=== PATIENT | male | born 1990 | race Caucasian/White ===

== ENCOUNTER 2016-10-29 17:05 | Emergency (ER) | payer MEDICAID ==
[~2016-10-29] VITALS: Ht 185.4 cm; Wt 70.3 kg
[~2016-10-29 17:05] MED LIST: AMOXIL500 M1 PO; BACTRIM DS 8001 TAB PO; FLONASE 50 MCG16 GM; KEFLEX 500MG.500 MG PO; NIX CREAM R60 ML/BOT EX; NOMEDS XX; PREDNISONE 20MG20 MG PO
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
--- OUTSIDE RECORDS SUMMARY | 2016-10-29 17:20 | External Medical Summary Rpt ---
Demographics Preferred Language Upper Sor[place] Marital Status Unknown Hindu Affiliation Unknown Race Unknown Ethnic Group Unknown Author Author , Organization [employer] Address Unknown Phone Unavailable Purpose Continuity of Care Document - through 2016 Immunization No patient found.
--- OUTSIDE RECORDS SUMMARY | 2016-10-29 17:20 | External Medical Summary Rpt ---
Demographics Preferred Language Upper Sor[place] Marital Status Unknown Buddhism Affiliation Unknown Race Unknown Ethnic Group Unknown Author Author , Organization [employer] Address Unknown Phone Unavailable Purpose Continuity of Care Document - through 2016 Immunization No patient found.
--- OUTSIDE RECORDS SUMMARY | 2016-10-29 17:20 | External Medical Summary Rpt ---
[...] in 11:16 source source PM data data [place]# 0.5 0.0 - x10(3)/ No No Mar [...] data data data BACK PAIN.\. br\\.br \COMPAR AIR: None.\. br\\.br \TECHNI QUE: XR LUMBAR SPINE [...]
--- OUTSIDE RECORDS SUMMARY | 2016-10-29 17:20 | External Medical Summary Rpt ---
Author Author , Organization [employer] Address Unknown Phone Unavailable Care Team Providers Care Tank Worker Name Role Phone [facility] # [id number], Unavailable Unavailable [facility] # [id number] Purpose Continuity of Care Document - 10-03-2010 through 2016 Medications Na ND Rx Da Fi Fi [...]
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
--- OUTSIDE RECORDS SUMMARY | 2016-10-29 17:20 | External Medical Summary Rpt ---
Author Author , Organization [employer] Address Unknown Phone Unavailable Care Team Providers Care Welder Assistant Name Role Phone [facility] # [id number], Unavailable Unavailable [facility] # [id number] Purpose Continuity of Care Document - 10-03-2010 [...]
--- NOTE | 2016-10-29 17:58 | Urgent Treatment Center Report ---
History of Present Issue Date/Time Seen by Provider 10/29/16 6757 Visit Reason Pt arrived:Walked Presenting Problem:PT STATES HURTING HIS BACK WEDNESDAY WHILE CARRYING A CASKET. STATES TAKING TYLENOL 1330 Location if Accident: Onset of symptoms date/time:10/25/16/ or onset unknown for:MEDICAL HX UNKNOWN Have you (or family members/close friends) recently traveled outside the [place]? N If Yes, where/when: Have you had exposure to infectious disease within the past month? TB? Other? Specify: Patient states that he was helping pack a casket on Wednesday and he twisted wrong and felt a "pop" states that he has been having pain ever since. State that he has been taking Tylenol and it is not helping. ALLERGIES Uncoded Allergies: STEROIDS (10/29/16) Home Medications Reported Medications No Home Medications (NO HOME MEDICATIONS) 1 EACH XX ONCE History Medical History General CAD? No Angina: No [place]: No Hypertension? No Hyperlipidemia? No CHF? No DVT? No PE? No COPD? No Asthma? No Anemia? No GERD? No Gastric ulcers? No GI Bleed? No Hernia? No Thyroid Problems? No Hypothyroidism? No CVA? No Seizures? No Diabetes? No Renal Insuffiency? No UTI? No Stones? No BPH? No GB Disease: No Nephritic Syndrome? No Asplenia? No Hepatitis? No Sickle Cell Disease? No Arthritis? No Migraines? No Cataracts? No Glaucoma? No MRSA? No HIV? No TB? No Anxiety? No Depression? No Cancer? No More? No Immunization HX DT/Tetanus 5-10 Years Ago Surgical Hx Previous Surgery?N Social History Smoking Hx Smoker: Current Every Day Smoker Tobacco: Yes Type Cigarettes Packs/day < 1 Pack Alcohol Alcohol: No Review of Systems All Other Systems Reviewed and Negative Comment Patient states that he was helping to move a casket on Wednesday when he twisted and felt a "pop" in his back and states that he has been having pain ever since Physical Exam Vital Signs Vital Signs Date Time Temp Pulse Resp B/P Pulse O2 O2 Flow FiO2 Ox Delivery Rate 10/29 1827 20 10/29 1715 97.9 86 18 142/73 98 General Appearance mild distress, Patient appeared to be in pain, slumpted over in chair Respiratory Status Yes: trachea midline, chest symmetrical, non tender chest. No: respiratory distress. Cardiovascular normal exam, regular rate/rhythm, no peripheral edema Neurologic alert, efficiency expert II-XII nml as tested, normal exam, no motor/sensory deficits, oriented x 3 Comments Patient slumpted over on exam chair states that he is having pain in his lower back, denies difficulty urinating, denies bowel difficulty. States that pain worsens with movements Medical Decision Making LABS/Meds/Orders Pt receiving controlled substance in ED? No Results/Orders Current Medication Orders Sig/Kera Start time Last Medication Dose Route Stop Time Status Admin Ketorolac 60 MG ONCE ONE 10/29 1814 DC 10/29 Tromethamine IM 10/29 Orphenadrine Citrate 60 MG ONCE ONE 10/29 1814 DC / IM 10/29 Orphenadrine Citrate 0 .STK-MED ONE 10/29 1814 DC .ROUTE Ketorolac 0 .STK-MED ONE 10/30 1811 DC Tromethamine .ROUTE Orders Procedure Date/time Status LUMBAR SPINE 5 VIEWS 10/29 1800 Active Progress [facility] Progress Notes Date 10/29/16 Time 1830 Comment Patient was given ordered medication will allow time and see if helped with pain Departure Departure Time of Disposition 1906 Disposition DC Home or Self Care(routine) Clinical Impression Primary Impression: Low back pain Qualifiers: Chronicity: unspecified Back pain laterality: midline Sciatica presence: without sciatica Qualified Code: M54.5 - Low back pain Condition STABLE Patient Instructions DI for Low Back Pain Additional Instructions Follow up with family doctor 2-3 days if no improvement in symptoms Report immediately to the ER if you began to have bladder or bowel difficulties Return if needed Take medication as prescribed Discharge Counseling Counseled pt/family regarding diagnosis, test results, medications/RX, home care, follow up needs Prescriptions Current Visit Scripts Cyclobenzaprine Hcl (Flexeril) 10 MG PO TID #30 TAB Etodolac 200 MG PO QID PRN pain #20 CAP at 1914
--- NOTE | 2016-10-29 17:58 | Urgent Treatment Center Report ---
History of Present Issue Date/Time Seen by Provider 10/29/16 8127 Visit Reason Pt arrived:Walked Presenting Problem:PT STATES HURTING HIS BACK WEDNESDAY WHILE CARRYING A CASKET. STATES TAKING TYLENOL 1330 Location if Accident: Onset of symptoms date/time:10/25/16/ or onset unknown for:MEDICAL HX UNKNOWN Have you (or family members/close friends) recently traveled outside the [place]? N If Yes, where/when: Have you had exposure to infectious disease within the past month? TB? Other? Specify: Patient states that he was helping pack a casket on Wednesday and he twisted wrong and felt a "pop" states that he has been having pain ever since. State that he has been taking Tylenol and it is not helping. ALLERGIES Uncoded Allergies: STEROIDS (10/29/16) Home Medications Reported Medications No Home Medications (NO HOME MEDICATIONS) 1 EACH XX ONCE History Medical History General CAD? No Angina: No NV: No Hypertension? No Hyperlipidemia? No CHF? No DVT? No PE? No COPD? No Asthma? No Anemia? No GERD? No Gastric ulcers? No GI Bleed? No Hernia? No Thyroid Problems? No Hypothyroidism? No CVA? No Seizures? No Diabetes? No Renal Insuffiency? No UTI? No Stones? No BPH? No GB Disease: No Nephritic Syndrome? No Asplenia? No Hepatitis? No Sickle Cell Disease? No Arthritis? No Migraines? No Cataracts? No Glaucoma? No MRSA? No HIV? No TB? No Anxiety? No Depression? No Cancer? No More? No Immunization HX DT/Tetanus 5-10 Years Ago Surgical Hx Previous Surgery?N Social History Smoking Hx Smoker: Current Every Day Smoker Tobacco: Yes Type Cigarettes Packs/day < 1 Pack Alcohol Alcohol: No Review of Systems All Other Systems Reviewed and Negative Comment Patient states that he was helping to move a casket on Wednesday when he twisted and felt a "pop" in his back and states that he has been having pain ever since Physical Exam Vital Signs Vital Signs Date Time Temp Pulse Resp B/P Pulse O2 O2 Flow FiO2 Ox Delivery Rate 10/29 1827 20 10/29 1715 97.9 86 18 142/73 98 General Appearance mild distress, Patient appeared to be in pain, slumpted over in chair Respiratory Status Yes: trachea midline, chest symmetrical, non tender chest. No: respiratory distress. Cardiovascular normal exam, regular rate/rhythm, no peripheral edema Neurologic alert, supervisor cell room II-XII nml as tested, normal exam, no motor/sensory deficits, oriented x 3 Comments Patient slumpted over on exam chair states that he is having pain in his lower back, denies difficulty urinating, denies bowel difficulty. States that pain worsens with movements Medical Decision Making LABS/Meds/Orders Pt receiving controlled substance in ED? No Results/Orders Current Medication Orders Sig/Kera Start time Last Medication Dose Route Stop Time Status Admin Ketorolac 60 MG ONCE ONE 10/29 1814 DC 10/29 Tromethamine IM 10/29 Orphenadrine Citrate 60 MG ONCE ONE 10/29 1814 DC / IM 10/29 Orphenadrine Citrate 0 .STK-MED ONE 10/29 1814 DC .ROUTE Ketorolac 0 .STK-MED ONE 10/30 1811 DC Tromethamine .ROUTE Orders Procedure Date/time Status LUMBAR SPINE 5 VIEWS 10/29 1800 Active Progress [facility] Progress Notes Date 10/29/16 Time 1830 Comment Patient was given ordered medication will allow time and see if helped with pain Departure Departure Time of Disposition 1906 Disposition DC Home or Self Care(routine) Clinical Impression Primary Impression: Low back pain Qualifiers: Chronicity: unspecified Back pain laterality: midline Sciatica presence: without sciatica Qualified Code: M54.5 - Low back pain Condition STABLE Patient Instructions DI for Low Back Pain Additional Instructions Follow up with family doctor 2-3 days if no improvement in symptoms Report immediately to the ER if you began to have bladder or bowel difficulties Return if needed Take medication as prescribed Discharge Counseling Counseled pt/family regarding diagnosis, test results, medications/RX, home care, follow up needs Prescriptions Current Visit Scripts Cyclobenzaprine Hcl (Flexeril) 10 MG PO TID #30 TAB Etodolac 200 MG PO QID PRN pain #20 CAP at 1914
[2016-10-29] MEDS ORDERED: FLEXERIL10 MG PO (19:14)
[2016-10-29] MEDS ORDERED: ETODOLAC200 MG PO (19:14)
[2016-10-29 19:24] VITALS: BP 142/73
--- NOTE | 2016-10-30 05:27 | RADIOLOGY REPORT PS360 ---
EXAM: LUMBAR SPINE 5 VIEWS HISTORY: Low back pain back pain ORDERING PHYSICIAN: FILEMON MESSINA APRN PATIENT AGE: 26 years COMPARISON: None FINDINGS: Normal alignment. No fracture or dislocation. No lytic or blastic change. There is some decrease in the disc space at L1-L2 with slight reversal of the thoracolumbar lordosis. There are slight decrease in height of L1 anteriorly which could be chronic. Please correlate clinically. Otherwise negative. IMPRESSION: 1. Mild degenerative disc disease L1-L2 with reversal of the upper lumbar lordosis which may be seen with muscle spasm. 2. Decrease in height of L1 anteriorly age indeterminate. If pain persists, MRI may be of further value to confirm that this is not acute
== END 2016-10-29 19:26 | disposition home or self-care (01) ==
LOC: UTC 17:05
DX: M54.5 Low back pain (principal); Z72.0 Tobacco use